=== PATIENT | male | born 1940 | race Caucasian/White ===

== ENCOUNTER 2018-12-01 13:05 | Observation (INO) | payer OTHER ==
--- NOTE | 2018-12-01 13:14 | EDPHY ---
H & P Time Seen by Provider: 12/01/18 13:12 HPI/ROS: CHIEF COMPLAINT: Double vision, facial droop HISTORY OF PRESENT ILLNESS: 78-year-old male presents with double vision and facial droop. Sudden onset of diplopia at noon today. Associated with a moderate facial droop and dizziness. No extremity numbness or weakness. On EMS arrival, blood sugar was adequate. A stroke alert was called. Symptoms lasted 45 minutes and have now resolved. No recent trauma and no prior history of CVA/TIA. REVIEW OF SYSTEMS: complete 10 point ROS reviewed and is negative except for the noted elements in the HPI - Medical/Surgical History PMH: Depression and anxiety - Social History Smoking Status: Never smoked Alcohol Use: Sober Drug Use: None - Physical Exam Exam: General Appearance: Alert, pleasant Eyes: Pupils equal and round, no conjunctival pallor or injection ENT, Mouth: Mucous membranes moist Neck: Normal inspection Respiratory: Lungs are clear to auscultation Cardiovascular: Regular rate and rhythm Gastrointestinal: Abdomen is soft and nontender Neurological: Alert, oriented x3, cranial nerves II through XII intact, motor 5 /5, sensory intact to light touch Skin: Warm and dry, no rash Extremities: Nontender, no pedal edema Psychiatric: Mood and affect normal Constitutional: Initial Vital Signs Temperature (C) 37 C 12/01/18 13:19 Heart Rate 57 L 12/01/18 13:19 Respiratory Rate 15 12/01/18 13:19 Blood Pressure 150/96 H 12/01/18 13:19 O2 Sat (%) 97 12/01/18 13:19 O2 Delivery Mode Room Air Allergies/Adverse Reactions: No Known Allergies Allergy (Verified 12/01/18 14:19) Home Medications: Medication Instructions Recorded ARIPiprazole [Abilify 2 mg (*)] 2 mg PO DAILY 12/01/18 DULoxetine [Cymbalta 30 MG (*)] 30 mg PO DAILY 12/01/18 Herbals/Supplements -Info Only 1 ea PO DAILY 12/01/18 Medical Decision Making - Diagnostics EKG Interpretation: EKG interpreted by me reveals normal sinus rhythm, rate 61, T-wave inversions in leads V1 and V2, borderline prolonged QT interval. Interpretation: Abnormal EKG Imaging Results: Imaging Impressions Head CT 12/01/18 13:06 Impression: 1. No acute intracranial findings. If symptoms persist and clinical suspicion warrants, consider MRI. 2. Diffuse cerebral atrophy with periventricular and subcortical low attenuation consistent with chronic microvascular ischemic gliosis. Findings discussed with SARAHY DIANA 12/01/2018 at 13:24. Chest X-Ray 12/01/18 13:09 Impression: COPD, with no acute abnormality identified. Imaging: Discussed imaging studies w/ call center director Radiologist ED Course/Re-evaluation: This patient presents with diplopia and facial droop, now resolved. The NIH stroke score is 0. CT scan of the brain is unremarkable. Results discussed with the patient. Aspirin 325 mg orally given. Repeat neurologic exam is unchanged. hall monitor reveals normal sinus rhythm throughout. Advised admission for further evaluation of TIA. The patient agrees with this plan. The hospitalist service was consulted for admission. Differential Diagnosis: Altered mental status including but not limited to hypoglycemia, infectious process, electrolyte abnormality, head injury, CVA, and intoxicants. - Data Points Laboratory Results: Laboratory Results 12/01/18 13:00 12/01/18 13:00 12/01/18 12/01/18 12/01/18 13:11 13:00 13:00 WBC 6.29 10^3/uL 10^3/uL (3.80-9.50) RBC 4.13 10^6/uL L 10^6/uL (4.40-6.38) Hgb 12.9 g/dL L g/dL (13.7-17.5) POC Hgb 12.9 gm/dL L gm/dL (13.7-17.5) Hct 39.0 % L % (40.0-51.0) POC Hct 38 % L % (40-51) MCV 94.4 fL fL (81.5-99.8) MCH 31.2 pg pg (27.9-34.1) MCHC 33.1 g/dL g/dL (32.4-36.7) RDW 13.9 % % (11.5-15.2) Plt Count 255 10^3/uL 10^3/uL (150-400) MPV 9.6 fL fL (8.7-11.7) Neut % (Auto) 68.8 % % (39.3-74.2) Lymph % (Auto) 18.9 % % (15.0-45.0) [place] % (Auto) 9.4 % % (4.5-13.0) Eos % (Auto) 1.6 % % (0.6-7.6) Baso % (Auto) 0.8 % % (0.3-1.7) Nucleat RBC Rel Count 0.0 % % (0.0-0.2) Absolute Neuts (auto) 4.33 10^3/uL 10^3/uL (1.70-6.50) Absolute Lymphs (auto) 1.19 10^3/uL 10^3/uL (1.00-3.00) Absolute Monos (auto) 0.59 10^3/uL 10^3/uL (0.30-0.80) Absolute Eos (auto) 0.10 10^3/uL 10^3/uL (0.03-0.40) Absolute Basos (auto) 0.05 10^3/uL 10^3/uL (0.02-0.10) Absolute Nucleated RBC 0.00 10^3/uL 10^3/uL (0-0.01) Immature Gran % 0.5 % % (0.0-1.1) Immature Gran # 0.03 10^3/uL 10^3/uL (0.00-0.10) POC Sodium 141 mEq/L mEq/L (135-145) Sodium 139 mEq/L mEq/L (135-145) POC Potassium 3.9 mEq/L mEq/L (3.3-5.0) Potassium 4.3 mEq/L mEq/L (3.5-5.2) POC Chloride 102 mEq/L mEq/L (97-110) Chloride 103 mEq/L mEq/L (97-110) Carbon Dioxide 28 mEq/l mEq/l (22-31) POC Total CO2 28 mEq/L mEq/L (22-31) Anion Gap 8 mEq/L mEq/L (6-14) POC BUN 27 mg/dL H mg/dL (7-23) BUN 28 mg/dL H mg/dL (7-23) Creatinine 0.7 mg/dL mg/dL (0.7-1.3) POC Creatinine 0.8 mg/dL mg/dL (0.7-1.3) Estimated GFR > 60 Glucose 100 mg/dL mg/dL (70-100) POC Glucose 105 mg/dL H mg/dL (70-100) Calcium 9.1 mg/dL mg/dL (8.5-10.4) Medications Given: Discontinued Medications Aspirin (Aspirin) 325 mg PO EDNOW ONE Stop: 12/01/18 13:25 Last Admin: 12/01/18 13:34 Dose: 325 mg Point of Care Test Results: Chemistry 12/01/18 13:11 POC Sodium 141 mEq/L mEq/L (135-145) POC Potassium 3.9 mEq/L mEq/L (3.3-5.0) POC Chloride 102 mEq/L mEq/L (97-110) POC Total CO2 28 mEq/L mEq/L (22-31) POC BUN 27 mg/dL H mg/dL (7-23) POC Creatinine 0.8 mg/dL mg/dL (0.7-1.3) POC Glucose 105 mg/dL H mg/dL (70-100) ISTAT H&H 12/01/18 13:11 POC Hgb 12.9 gm/dL L gm/dL (13.7-17.5) POC Hct 38 % L % (40-51) Departure - Departure Disposition: [facility] Inpatient Acute Clinical Impression: Transient cerebral ischemia Condition: Fair
[2018-12-01 13:21] LABS: PLATELET COUNT 255 10^3/uL (150-400)
[2018-12-01] MEDS ORDERED: ASPIRIN 325 MG TAB PO ONE (13:24)
[2018-12-01] MEDS ORDERED: ONDANSETRON 4 MG/2 ML VIAL IVP PRN (15:22)
[2018-12-01] MEDS ORDERED: ONDANSETRON DISINTEGRATING 4 MG TAB PO PRN (15:22)
[2018-12-01] MEDS ORDERED: ACETAMINOPHEN 325 MG TAB PO PRN (15:22)
[2018-12-01] MEDS ORDERED: IOPAMIDOL (ISOVUE 370) 100 ML BTL IV ONE (15:36)
--- NOTE | 2018-12-01 15:38 | CPEKG ---
Test Reason : OPEN Blood Pressure : / mmHG Vent. Rate : 061 BPM Atrial Rate : 059 BPM P-R Int : 154 ms QRS Dur : 098 ms QT Int : 476 ms P-R-T Axes : -10 041 071 degrees QTc Int : 480 ms Sinus rhythm Nonspecific T abnrm, anterolateral leads Borderline prolonged QT interval Confirmed by Bonnie Diana ([id number]) on 12/01/2018 3:38:17 PM Referred By: BONNIE DIANA Confirmed By:Bonnie Diana
--- NOTE | 2018-12-01 16:04 | ECHO ---
[email or web address] [address] Main: [phone] Echocardiography Examination Transthoracic Name: AMY LUCAS MR#: [id number] Study Date: 12/01/2018 Study Time: 02:55 PM Date of : 1940 Age: 78 year(s) Height: 177.8 cm (70 in.) Weight: 63.5 kg (140 lb.) BSA: 1.79 m2 Gender: Male Examination: Echo with Agitated Saline Contrast: Image Quality: Adequate Rhythm: Heart Rate: BP: 148 mmHg/84 mmHg Indication: TIA, diplopia, facial droop and dizziness Procedure Staff Referring Physician: Entry Level Account Executive: Mary Friend [facility] Reading Physician: Maciej Fernando MD Requesting Provider: Ordering Physician: Virginie Ca Indication: TIA, diplopia, facial droop and dizziness Measurements Chambers AV/MV Label Value Normal Value Label Value Normal Value LVOT Vmax 0.88 m/s (0.7m/s - 1.1m/s) AV PGmax 7 mmHg LVOTd 2.3 cm (1.9cm - 2.1cm) AV PGmean 5 mmHg LVOT VTI 19.4 cm (18cm - 22cm) AV Vmax 1.3 m/s LVDd, 2D 4.2 cm (4.2cm - 5.9cm) VIVIAN (Vmax) 2.8 cm2 LVDs, 2D 2.3 cm (2.1cm - 4cm) VIVIAN (VTI) 2.4 cm2 IVSd, 2D 1.1 cm (0.6cm - 1.1cm) MV E Vmax 0.75 m/s LVPWd, 2D 1.1 cm (0.6cm - 1cm) MV A Vmax 0.69 m/s LVEF, BP 63 % (55% - 70%) MV E/A 1.09 LVEF, 2D 78 % (54% - 74%) MV E/E' lateral 9.3 LVOT PGmean 2 mmHg MV E/E' septal 9.9 (0.45 - 1.25) LVOT Vmean 0.64 m/s MV DT 268 ms RVDd, 2D 2.5 cm (1.9cm - 3.8cm) MV E' septal 0.08 m/s LA Volume, BP 58 ml (18ml - 58ml) MV PHT 0.08 s LADs, 2D 2.8 cm (3cm - 4cm) MVA PHT 2.8 cm2 LAESV index, BP 32.4 ml/m2 MV E' lateral 0.08 m/s RA Area 19.3 cm2 MV E/E' mean 9.38 Additional Vessels MV PHT 78 ms Label Value Normal Value MV E' mean 0.08 m/s AoAsc 3.5 cm TV/PV Patient: AMY LUCAS Study Date: 12/01/2018 Page 1 of 3 02:55 PM AoRoot, 2D 3.2 cm (1.4cm - 2.6cm) Label Value Normal Value IVC 1.3 cm (1.2cm - 2.3cm) RA Pressure 5 mmHg RVSP 29 mmHg TR Pmax 24 mmHg TR Vmax 2.44 m/s PV PGmax 2 mmHg PV Vmax, Caliper 0.73 m/s (0.6m/s - 0.9m/s) Conclusions Left Ventricle: Normal global systolic left ventricular function. EF range is estimated at 60 % - 65 %. IAS: An agitated saline study was performed and was negative for intracardiac shunting. Findings Left Ventricle: Left ventricle is normal in size. Normal global systolic left ventricular function. The ejection fraction, measured by Simpsons method, is 63 %. EF range is estimated at 60 % - 65 %. There are no regional wall motion abnormalities. Left ventricular diastolic function parameters are normal. There is a sigmoid shaped septum is present, which is a normal finding in the elderly. . Right Ventricle: Normal size right ventricle. Right ventricular systolic function is normal. Left Atrium: The left atrium is grossly normal. IAS: An agitated saline study was performed and was negative for intracardiac shunting. Right Atrium: The right atrium is mildly dilated. Mitral Valve: Mitral valve appears structurally normal. Mild mitral regurgitation. No mitral valve stenosis. Aortic Valve: Aortic leaflets are structurally normal. Mild aortic regurgitation is present. There is no aortic stenosis. Tricuspid Valve: Tricuspid valve leaflets are structurally normal. Mild to moderate tricuspid regurgitation. No tricuspid valve stenosis. Right Ventricular systolic pressure is measured at 29 mmHg. Pulmonic Valve: Pulmonic leaflets are structurally normal. Mild pulmonic valve regurgitation is present. Aorta: The aortic root size in 2D measures 3.2 cm. The ascending aorta measures 3.5 cm. Aorta Measurements AoRoot, 2D is 3.2 cm. IVC: The inferior vena cava is normal in size. Pericardium: A small pericardial effusion was identified. Exam Details Procedure Ordered: Echo with Agitated Saline Procedure Status: Routine study Patient: AMY LUCAS Study Date: 12/01/2018 Page 2 of 3 02:55 PM Image Quality: Adequate Facility Location: Cardiac Echo 1 (No Signature Object) Patient: AMY LUCAS Study Date: 12/01/2018 Page 3 of 3 02:55 PM [id number]
--- NOTE | 2018-12-01 16:27 | PDGENHP ---
<Virginie Ca - Last Filed: 12/01/18 16:51> History and Physical - Chief Complaint TIA - History of Present Illness This is a 78 y/o male w/hx of anxiety and depression presenting as a stroke alert from his residence of [facility] in [place]. He tells me around lunch time (noon), he experienced a sudden onset of diplopia w/ associated left facial droop and dizziness. On EMS arrival, BS was adequate. Symptoms lasted 45 minutes and have now resolved. He denies any recent difficulty w/balance or vision, BP, palpitations, SOB. He has never had a CVA or TIA before. No trauma. No onset of extremity weakness or sensation changes. He is being admitted for further work-up and monitoring. History Information - Allergies/Home Medication List Allergies/Adverse Reactions: No Known Allergies Allergy (Verified 12/01/18 14:19) Home Medications: ARIPiprazole [Abilify 2 mg (*)] 2 mg PO DAILY 12/01/18 [Last Taken 12/01/18] DULoxetine [Cymbalta 30 MG (*)] 30 mg PO DAILY 12/01/18 [Last Taken 12/01/18] Herbals/Supplements -Info Only 1 ea PO DAILY 12/01/18 [Last Taken Unknown] I have personally reviewed and updated: family history, medical history, social history, surgical history Past Medical History: Anxiety. Depression - Surgical History Reports: no pertinent surgical hx - Family History Positive for: myocardial infarction - Social History Smoking Status: Never smoked Alcohol Use: Sober Drug Use: None Additional social history: Moved to the assisted-living section of his place of residence and it is noisy therefore he has difficulty going to sleep. Review of Systems Review of Systems: ROS: 10pt was reviewed & negative except for what was stated in HPI & below Physical Exam Physical Exam: Lab data and imaging were reviewed. Head CT: No acute intracranial findings. Head/Neck CTA: Relatively normal CTA of neck w/minimal calcified plaque on the right at the carotid bulb level. Dominant right vertrbral artery w/small caliber left vertebral artery. Moderate tortuosity of the distal ICA below the skull base bilaterally. Normal CTA of ven[place]ie ira of means w/normal variation. CXR: COPD w/no acute abnormality identified EKG: SR, normal axis, non-specific T wave abnormalities ECHO w/Bubbler: Normal global LVEF 60-65%, negative intracardiac shunting Trop: 0.01 BUN/Cr: 28/0.7 Temp Pulse Resp BP Pulse Ox 37 C 55 L 16 148/84 H 96 12/01/18 13:19 12/01/18 14:08 12/01/18 14:08 12/01/18 14:08 12/01/18 14:08 Constitutional: no apparent distress, appears nourished, not in pain Eyes: PERRL, anicteric sclera, EOMI Ears, Nose, Mouth, Throat: moist mucous membranes, hearing normal, ears appear normal, no oral mucosal ulcers Cardiovascular: regular rate and rhythym, no murmur, rub, or gallop, No edema Peripheral Pulses: 2+: dorsalis-pedis (R), dorsalis-pedis (L) Respiratory: no respiratory distress, no rales or rhonchi, clear to auscultation Gastrointestinal: normoactive bowel sounds, soft, non-tender abdomen, no palpable masses Genitourinary: no bladder fullness, no bladder tenderness Skin: warm, normal color, no rashes or abrasions, no fluctuance, no induration, No mottled Musculoskeletal: full muscle strength, no muscle tenderness, normal joint ROM, no joint effusions, other (Performed heel slide down baltazar correctly) Neurologic: AAOx3, sensation intact bilaterally, CN II-XII Intact Psychiatric: interacting appropriately, not anxious, not encephalopathic, thought process linear Lymph, Heme, Immunologic: no cervical LAD, no supraclavicular LAD Lab Data & Imaging Review 12/01/18 13:00 12/01/18 13:00 WBC 6.29 10^3/uL (3.80-9.50) 12/01/18 13:00 RBC 4.13 10^6/uL (4.40-6.38) L 12/01/18 13:00 Hgb 12.9 g/dL (13.7-17.5) L 12/01/18 13:00 POC Hgb 12.9 gm/dL (13.7-17.5) L 12/01/18 13:11 Hct 39.0 % (40.0-51.0) L 12/01/18 13:00 POC Hct 38 % (40-51) L 12/01/18 13:11 MCV 94.4 fL (81.5-99.8) 12/01/18 13:00 MCH 31.2 pg (27.9-34.1) 12/01/18 13:00 MCHC 33.1 g/dL (32.4-36.7) 12/01/18 13:00 RDW 13.9 % (11.5-15.2) 12/01/18 13:00 Plt Count 255 10^3/uL (150-400) 12/01/18 13:00 MPV 9.6 fL (8.7-11.7) 12/01/18 13:00 Neut % (Auto) 68.8 % (39.3-74.2) 12/01/18 13:00 Lymph % (Auto) 18.9 % (15.0-45.0) 12/01/18 13:00 [place] % (Auto) 9.4 % (4.5-13.0) 12/01/18 13:00 Eos % (Auto) 1.6 % (0.6-7.6) 12/01/18 13:00 Baso % (Auto) 0.8 % (0.3-1.7) 12/01/18 13:00 Nucleat RBC Rel Count 0.0 % (0.0-0.2) 12/01/18 13:00 Absolute Neuts (auto) 4.33 10^3/uL (1.70-6.50) 12/01/18 13:00 Absolute Lymphs (auto) 1.19 10^3/uL (1.00-3.00) 12/01/18 13:00 Absolute Monos (auto) 0.59 10^3/uL (0.30-0.80) 12/01/18 13:00 Absolute Eos (auto) 0.10 10^3/uL (0.03-0.40) 12/01/18 13:00 Absolute Basos (auto) 0.05 10^3/uL (0.02-0.10) 12/01/18 13:00 Absolute Nucleated RBC 0.00 10^3/uL (0-0.01) 12/01/18 13:00 Immature Gran % 0.5 % (0.0-1.1) 12/01/18 13:00 Immature Gran # 0.03 10^3/uL (0.00-0.10) 12/01/18 13:00 POC Sodium 141 mEq/L (135-145) 12/01/18 13:11 Sodium 139 mEq/L (135-145) 12/01/18 13:00 POC Potassium 3.9 mEq/L (3.3-5.0) 12/01/18 13:11 Potassium 4.3 mEq/L (3.5-5.2) 12/01/18 13:00 POC Chloride 102 mEq/L (97-110) 12/01/18 13:11 Chloride 103 mEq/L (97-110) 12/01/18 13:00 Carbon Dioxide 28 mEq/l (22-31) 12/01/18 13:00 POC Total CO2 28 mEq/L (22-31) 12/01/18 13:11 Anion Gap 8 mEq/L (6-14) 12/01/18 13:00 POC BUN 27 mg/dL (7-23) H 12/01/18 13:11 BUN 28 mg/dL (7-23) H 12/01/18 13:00 Creatinine 0.7 mg/dL (0.7-1.3) 12/01/18 13:00 POC Creatinine 0.8 mg/dL (0.7-1.3) 12/01/18 13:11 Estimated GFR > 60 12/01/18 13:00 Glucose 100 mg/dL (70-100) 12/01/18 13:00 POC Glucose 105 mg/dL (70-100) H 12/01/18 13:11 Calcium 9.1 mg/dL (8.5-10.4) 12/01/18 13:00 POC Troponin I 0.01 ng/mL (0.00-0.08) 12/01/18 13:09 Assessment & Plan Plan: 78 y/o male w/ no prior cardiac hx presents w/TIA symptoms of diplopia, dizziness, and left sided facial droop. Since admission, his symptoms have resolved. NIH scale score is 0. He is hemodynamically stable w/vitals BP 148/84 , HR 55, Resp 16, 37.0c, 96%RA. #Transient cerebral ischemia -Neurology consulted -Imaging performed w/results relatively unremarkable. These images include echo w/bubbler, head/neck CTA w/contrast, CXR, EKG and head CT w/o contrast. Brain MRI w/o contrast pending -Lipid panel on 11/26/18 revealing the following: Cholesterol 170 mg/dL, Triglyceride 216 mg/dL, HDL 56 mg/dL, LDL 71 mg/dL, VLDL 43 mg/dL, non-HDL 114 mg/dL -PT/OT/MANAGER EMERGENCY to evaluate and treat -Cont tele monitoring -NIH Scale QS and Neuro checks Q2Hx2, Q4Hx24, QS -Received ASA 325 in ED; will cont ASA 81mg in AM #Depression/anxiety: on Abilify and Cymbalta #Insomnia -Melatonin Diet: Regular after passes RN swallow eval test Code: DNR VTE ppx: SCDs Dispo: Admit to obs <Juventino Ellington - Last Filed: 12/01/18 17:47> History and Physical - History of Present Illness Review of Systems Review of Systems: Physical Exam Physical Exam: Temp Pulse Resp BP Pulse Ox 36.4 C 57 L 16 141/83 H 97 12/01/18 16:34 12/01/18 16:34 12/01/18 16:34 12/01/18 16:34 12/01/18 16:34 Lab Data & Imaging Review 12/01/18 13:00 12/01/18 13:00 WBC 6.29 10^3/uL (3.80-9.50) 12/01/18 13:00 RBC 4.13 10^6/uL (4.40-6.38) L 12/01/18 13:00 Hgb 12.9 g/dL (13.7-17.5) L 12/01/18 13:00 POC Hgb 12.9 gm/dL (13.7-17.5) L 12/01/18 13:11 Hct 39.0 % (40.0-51.0) L 12/01/18 13:00 POC Hct 38 % (40-51) L 12/01/18 13:11 MCV 94.4 fL (81.5-99.8) 12/01/18 13:00 MCH 31.2 pg (27.9-34.1) 12/01/18 13:00 MCHC 33.1 g/dL (32.4-36.7) 12/01/18 13:00 RDW 13.9 % (11.5-15.2) 12/01/18 13:00 Plt Count 255 10^3/uL (150-400) 12/01/18 13:00 MPV 9.6 fL (8.7-11.7) 12/01/18 13:00 Neut % (Auto) 68.8 % (39.3-74.2) 12/01/18 13:00 Lymph % (Auto) 18.9 % (15.0-45.0) 12/01/18 13:00 [place] % (Auto) 9.4 % (4.5-13.0) 12/01/18 13:00 Eos % (Auto) 1.6 % (0.6-7.6) 12/01/18 13:00 Baso % (Auto) 0.8 % (0.3-1.7) 12/01/18 13:00 Nucleat RBC Rel Count 0.0 % (0.0-0.2) 12/01/18 13:00 Absolute Neuts (auto) 4.33 10^3/uL (1.70-6.50) 12/01/18 13:00 Absolute Lymphs (auto) 1.19 10^3/uL (1.00-3.00) 12/01/18 13:00 Absolute Monos (auto) 0.59 10^3/uL (0.30-0.80) 12/01/18 13:00 Absolute Eos (auto) 0.10 10^3/uL (0.03-0.40) 12/01/18 13:00 Absolute Basos (auto) 0.05 10^3/uL (0.02-0.10) 12/01/18 13:00 Absolute Nucleated RBC 0.00 10^3/uL (0-0.01) 12/01/18 13:00 Immature Gran % 0.5 % (0.0-1.1) 12/01/18 13:00 Immature Gran # 0.03 10^3/uL (0.00-0.10) 12/01/18 13:00 POC Sodium 141 mEq/L (135-145) 12/01/18 13:11 Sodium 139 mEq/L (135-145) 12/01/18 13:00 POC Potassium 3.9 mEq/L (3.3-5.0) 12/01/18 13:11 Potassium 4.3 mEq/L (3.5-5.2) 12/01/18 13:00 POC Chloride 102 mEq/L (97-110) 12/01/18 13:11 Chloride 103 mEq/L (97-110) 12/01/18 13:00 Carbon Dioxide 28 mEq/l (22-31) 12/01/18 13:00 POC Total CO2 28 mEq/L (22-31) 12/01/18 13:11 Anion Gap 8 mEq/L (6-14) 12/01/18 13:00 POC BUN 27 mg/dL (7-23) H 12/01/18 13:11 BUN 28 mg/dL (7-23) H 12/01/18 13:00 Creatinine 0.7 mg/dL (0.7-1.3) 12/01/18 13:00 POC Creatinine 0.8 mg/dL (0.7-1.3) 12/01/18 13:11 Estimated GFR > 60 12/01/18 13:00 Glucose 100 mg/dL (70-100) 12/01/18 13:00 POC Glucose 105 mg/dL (70-100) H 12/01/18 13:11 Calcium 9.1 mg/dL (8.5-10.4) 12/01/18 13:00 POC Troponin I 0.01 ng/mL (0.00-0.08) 12/01/18 13:09 Assessment & Plan Assessment: Transient cerebral ischemia (Acute) Plan: Patient seen and evaluated independently and care plan reviewed with CARMELLA Ca. Agree with her assessment and plan as outlined above. Please see separate documentation for further details.
--- NOTE | 2018-12-01 17:51 | HOSPPROG ---
Hospitalist Progress Note Assessment/Plan: 78 yo M with PMH of anxiety, depression and malnutrition presenting with dizziness, double vision and facial droop while at assisted living facility resolved on arrival to ER consistent with TIA # TIA: presumed based on sxs present prior to arrival, did apparently have brief recurrence of diplopia after arrival but quickly resolved again. W/u so far unremarkable including head ct, head and neck CTA personally reviewed, echo without sig valvular disease. Plan is to monitor on telemetry, neurology consulted, lipid panel recently performed with LDL of 71. 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 Old records reviewed and summarized as above. Care plan reviewed with CARMELLA Ca as above, please see separate H&P for further details. Objective: Vital Signs Temp Pulse Resp BP Pulse Ox 36.4 C 57 L 16 141/83 H 97 12/01/18 16:34 12/01/18 16:34 12/01/18 16:34 12/01/18 16:34 12/01/18 16:34 ICD10 Worksheet Patient Problems: Problems Problem Status Onset Transient cerebral ischemia Acute
[2018-12-01] MEDS ORDERED: MELATONIN 3 MG TAB PO SCH (21:00)
[2018-12-01] MEDS ORDERED: HEPARIN 5,000 UNIT/0.5 ML INJ SC SCH (22:00)
[2018-12-02 05:21] LABS: PLATELET COUNT 209 10^3/uL (150-400)
[2018-12-02] MEDS ORDERED: ARIPiprazole 2 MG TAB PO SCH (09:00)
[2018-12-02] MEDS ORDERED: DULoxetine 30 MG CAP PO SCH (09:00)
[2018-12-02] MEDS ORDERED: ASPIRIN EC 81 MG TAB PO SCH (09:00)
--- NOTE | 2018-12-02 10:36 | GCON ---
[f rep st] CONSULTATION NEUROLOGIC CONSULTATION REFERRING PHYSICIAN: Juventino Ellington MD HISTORY: The patient is a 78-year-old gentleman who I am asked to see in neurologic consultation reg arding episode of double vision and some unsteadiness. The patient says that he no longer has any do uble vision. He was living at assisted living setting in [place], and around noon yesterday, he mazariegos d the sudden onset of double vision with some facial droop and feeling dizzy. Symptoms resolved afte r about 45 minutes. He has never had a similar problem before. He denies chest pain, palpitations, or shortness of breath. Now he says he might feel a little bit unsteady when he walks. There is a h istory of anxiety and depression with chronic use of medication, which has been stable. No smoking. No current alcohol use. No drug abuse. REVIEW OF SYSTEMS: Unremarkable except for that noted above. CURRENT MEDICATIONS: Tylenol, Abilify, daily aspirin 81 mg which is new since admission, Cymbalta 30 mg daily, melatonin as needed, Zofran as needed. ALLERGIES: No drug allergies. PHYSICAL EXAMINATION: VITAL SIGNS: Blood pressure 145/67, pulse of 58, respirations 17, temperature 36.5. GENERAL: He is well developed, sitting up in the chair. NECK: Supple. No bruits or masses . CARDIAC: Regular rate and rhythm. No murmur. HEENT: Pupils 3 mm and reactive. Extraocular mov ements intact. Normal facial sensation and strength. No focal numbness or weakness. He does not se e double vision in directions. LABORATORY STUDIES: White count of 5200, hematocrit of 35. Chemistries unremarkable with normal jose guadalupe er enzymes. The brain MRI shows no evidence of acute stroke. CT angiogram head and neck are negative for any sig nificant stenoses. Echocardiogram shows no definite embolic source. No evidence of PFO. IMPRESSION: Total unit time of 50 minutes. The patient experienced what sounds like TIA, perhaps on a small-vessel basis, but nothing in the large vessel category or embolic source identified. I woul d recommend Plavix 75 mg daily plus daily aspirin for 21 days, and then continue aspirin after that, and then statin therapy for secondary stroke prophylaxis. The patient's NIH stroke scale is 0. /[id number]/MODL
[2018-12-02 11:07] VITALS: BP 102/77
--- NOTE | 2018-12-02 11:49 | HOSPPROG ---
Hospitalist Progress Note Assessment/Plan: 78 yo M w tia MRI neg for stroke CTA head and neck w no flow limiting stenosis ldl 71 echo unremarkable no AF home w asa/plavix repeat lipid panel in 6 weeks 2 week telemetry monitor Subjective: tele: sinus w pac's, pvc's. no clear AF. sx resolved Objective: Vital Signs Temp Pulse Resp BP Pulse Ox 36.5 C 70 15 102/77 97 12/02/18 11:05 12/02/18 11:05 12/02/18 11:05 12/02/18 11:05 12/02/18 11:05 Laboratory Results 12/02/18 05:02 12/02/18 05:02 12/01/18 12/02/18 12/03/18 05:59 05:59 05:59 Intake Total 200 Output Total 1001 650 Balance -801 -650 - Physical Exam Constitutional: no apparent distress, appears nourished Eyes: PERRL, anicteric sclera Ears, Nose, Mouth, Throat: moist mucous membranes, hearing normal Cardiovascular: regular rate and rhythym, no murmur, rub, or gallop, No systolic murmur Respiratory: no respiratory distress, no rales or rhonchi Gastrointestinal: normoactive bowel sounds, soft, non-tender abdomen Genitourinary: no bladder fullness, No wang in urethra Skin: warm, normal color Musculoskeletal: full muscle strength Neurologic: AAOx3 Psychiatric: interacting appropriately ICD10 Worksheet Patient Problems: Problems Problem Status Onset Transient cerebral ischemia Acute
--- NOTE | 2018-12-02 12:21 | GDS ---
[f rep st] DISCHARGE SUMMARY DISCHARGE DIAGNOSIS: Transient ischemic attack manifested as diplopia, left facial droop, and dizzin ess. HOSPITAL COURSE: Symptoms resolved by the time he presented, but occurred again while here. His wor kup, included a negative noncontrast head CT, a brain MRI without evidence of acute stroke, showing m oderate nonspecific white matter disease and atrophy unchanged from 2015. He had a CT-A of the head and neck showing a small amount of atherosclerotic disease in his right carotid bulb, but otherwise u nremarkable. Telemetry monitoring revealed sinus with PACs and couplets, but no atrial fibrillation. He does have some palpitations as an outpatient. Echocardiogram demonstrated intact LV function wi th mild mitral regurgitation and mild aortic regurgitation without stenosis. He was seen by Neurolog y who recommended outpatient aspirin with 3 weeks of Plavix, and a statin. Notably, his LDL is 71 ta sasha a few weeks ago. The patient is discharged on aspirin, Plavix, I have advised him to repeat a lipid panel in 6 weeks a s patients LDLs can occasionally plummet to unsafe levels when given statins since he has relatively low levels already. Additionally, Cardiology will set up with an outpatient electronic device monitor with a isai pagan appointment to evaluate for occult atrial fibrillation not seen here. Patient lives in [facility], is discharged there. /[id number]/MODL
--- NOTE | 2018-12-02 13:55 | ASMTDCNOTE ---
Case Management Discharge Discharge Order Complete? Answers: Yes Patient to Obtain Answers: Other Notes: [facility] Transportation Arranged Answers: Other Transport will Pick (Date 12/02/2018 12:00 AM & Time) Faxed Final Orders Answers: Yes Agency/Facility Transfer Answers: Yes Report Printed & Faxed to Receiving Agency Family Notified Answers: Yes Notes: by pt Discharge Comments Notes: Pt admitted for TIA from [facility] in [place]. Pt is current with [facility]. CM faxed discharge orders to [facility]. Therapies are recommending outpatient follow up which will be provided by [facility]. Pt states he will have a friend pick him up and drive him back to the [facility]. No further CM needs noted at this time. D/C Plan: [facility] with therapy through [facility] Date Signed: 12/02/2018 01:54 PM Electronically Signed By:Luanne Neves
--- NOTE | 2018-12-02 14:03 | ASDISCHSUM ---
Discharge Information Plan Status:Assisted Living Medically Cleared to Leave:12/02/2018 Discharge Date:12/02/2018 CM D/C Disposition:Assisted Living ADT D/C Disposition: Projected Discharge Date:12/02/2018 Transportation at D/C:Friend Discharge Delay Reason: Follow-Up Date:12/02/2018 Discharge Slot: Final Diagnosis:TIA Placement Information Patient Contact Information Contact Name:SMITAJAYLYN Relationship:Fawn Address:[address] Work Phone: City:[place] Phone: State/Zip Code:[place] [address] Email: Financial Information Financial Class:HMO and PPO Plans Primary Plan Desc:[facility] [employer] Primary Plan Number:[id number] Secondary Plan Desc: Secondary Plan Number: Assessment Information LACE LACE Length of stay for Answers: 1 day current admission Acuity / Level of Answers: No Care: Did the patient have an inpatient admission? Comorbidities - select Answers: Opioid dependence all that apply / Chronic pain # of Emergency department Answers: 1-2 visits in the last 6 months Social determinants Answers: Mental health diagnosis (anxiety, depression, pers onality disorders, etc.) Score: 9 Date Signed: 12/02/2018 02:02 PM Electronically Signed By:Luanne Neves Case Management Discharge Plan Note Case Management Discharge Discharge Order Complete? Answers: Yes Patient to Obtain Answers: Other Notes: [facility] Transportation Arranged Answers: Other Transport will Pick (Date 12/02/2018 12:00 AM & Time) Faxed Final Orders Answers: Yes Agency/Facility Transfer Answers: Yes Report Printed & Faxed to Receiving Agency Family Notified Answers: Yes Notes: by pt Discharge Comments Notes: Pt admitted for TIA from [facility] in [place]. Pt is current with [facility] [employer]. CM faxed discharge orders to [facility]. Therapies are recommending outpatient follow up which will be provided by [facility]. Pt states he will have a friend pick him up and drive him back to the [facility]. No further CM needs noted at this time. D/C Plan: [facility] with therapy through [facility] [employer] Date Signed: 12/02/2018 01:54 PM Electronically Signed By:Luanne Neves Intervention Information
== END 2018-12-02 14:52 ==
LOC: EDUNIT# → F3N 19:42
PROVIDERS: ADMIT Internal Medicine; ATTEND Internal Medicine
DX: H53.2 Diplopia (principal); R29.700 NIHSS score 0; E46 Unspecified protein-calorie malnutrition; Z68.20 Body mass index [BMI] 20.0-20.9, adult; F32.9 Major depressive disorder, single episode, unspecified; F41.9 Anxiety disorder, unspecified; G47.00 Insomnia, unspecified
CPT/HCPCS: 70450; 70496; 70498; 70551; 71045; 92523; 93005; 93306; 97161; 97166; 99285; G0378; 82435-PO; 82565-PO; 82947-PO; 84132-PO; 84295-PO; 84484-ER; 84520-PO; 85014-ER; Q9967